=== PATIENT | male | born 1980 | race Caucasian/White ===

== ENCOUNTER 2017-10-07 12:17 | Inpatient (IN) | payer SELFPAY ==
[~2017-10-07] VITALS: Ht 175.3 cm; Wt 77.1 kg
[2017-10-07] MEDS ORDERED: ONDANSETRON HCL 4MG/2ML VIAL IV ONE (13:00)
[2017-10-07] MEDS ORDERED: CYANOCOBALAMIN 1000MCG/ML VIAL IM ONE (13:00)
[2017-10-07] MEDS ORDERED: SODIUM CHLORIDE 0.9% 1,000 ML IV ONE ×3 (13:00→15:00)
[2017-10-07 14:25] LABS: BASOPHILS % 0.3 % (0.0-2.0); EOSINOPHILS % 0.4 % (0.0-5.0); HEMATOCRIT. 38.1 % (42.0-52.0); LYMPHOCYTES % 9.3 % (20.0-50.0); MEAN CORPUSCULAR HEMOGLOBIN 30.1 pg (28.0-32.0); MEAN CORPUSCULAR VOLUME 88.4 fL (80.0-94.0); MEAN PLATELET VOLUME 8.5 fl (7.4-10.4); MONOCYTES % 6.3 % (2.0-8.0); NEUTROPHILS % 83.7 % (40.0-76.0); PLATELET 256 x1000/uL (130-400); RED CELL DISTRIBUTION WIDTH 13.4 % (11.6-14.6)
[2017-10-07 14:29] LABS: CHLORIDE 107 mEq/L (98-107)
[2017-10-07 14:31] LABS: PROTHROMBIN TIME 10.3 sec (9.4-11.6)
[2017-10-07 14:34] LABS: ETHANOL BLOOD < 10 mg/dL
[2017-10-07 14:37] LABS: CLARITY URINE CLEAR (CLEAR); COLOR URINE YELLOW (YELLOW); KETONES URINE NEGATIVE (NEGATIVE); LEUKOCYTE ESTERASE URINE NEGATIVE (NEGATIVE); NITRITE URINE NEGATIVE (NEGATIVE); OCCULT BLOOD URINE NEGATIVE (NEGATIVE); PROTEIN URINE NEGATIVE (NEGATIVE); SPECIFIC GRAVITY URINE 1.023 (1.005-1.030)
[2017-10-07 14:50] LABS: *AMPHETAMINES SCREEN URINE NEGATIVE (NEGATIVE); *BARBITURATES SCREEN URINE NEGATIVE (NEGATIVE); *BENZODIAZEPINES SCREEN URINE NEGATIVE (NEGATIVE); *COCAINE SCREEN URINE NEGATIVE (NEGATIVE)
[2017-10-07 14:51] LABS: CANNABINOID URINE SCREEN PRESUMTIVE POSITIVE (NEGATIVE); METHADONE URINE SCREEN NEGATIVE (NEGATIVE); OPIATES URINE SCREEN NEGATIVE (NEGATIVE); PHENCYCLIDINE URINE SCREEN NEGATIVE (NEGATIVE)
[2017-10-07] MEDS ORDERED: LORAZEPAM 2MG/ML CPJ IV PRN (19:30)
[2017-10-07] MEDS ORDERED: MAGNESIUM/ALUMINUM HYDROXIDE/SIMETHICONE 30ML UDC PO PRN (19:30)
[2017-10-07] MEDS ORDERED: NA PHOS,M-B/NA PHOS,DI-BA ENEMA 118ML PR PRN (19:30)
[2017-10-07] MEDS ORDERED: DIPHENHYDRAMINE 50MG/ML VIAL IV PRN (19:30)
[2017-10-07] MEDS ORDERED: IPRATROPIUM/ALBUTEROL 0.5-3(2.5)MG/3ML NEB INH PRN (19:30)
[2017-10-07] MEDS ORDERED: GUAIFENESIN 200MG/10ML SUGAR FREE UDC PO PRN (19:30)
[2017-10-07] MEDS ORDERED: CLONIDINE 0.1MG TABLET PO PRN (19:30)
[2017-10-07] MEDS ORDERED: HYDROCODONE/ACETAMINOPHEN 5/325MG TABLET PO PRN (19:30)
[2017-10-07] MEDS ORDERED: ACETAMINOPHEN 325MG TABLET PO PRN (19:30)
[2017-10-07] MEDS ORDERED: DOCUSATE SODIUM 100MG CAPSULE PO PRN (19:30)
[2017-10-07] MEDS: ONDANSETRON HCL 4MG/2ML VIAL IV PRN (20:24)
[2017-10-07 23:10] VITALS: BP 106/55
[2017-10-07 23:30] VITALS: BP 106/55
[2017-10-07] MEDS: SODIUM CHLORIDE 0.45% 1,000 ML IV SCH (23:30)
[2017-10-08 00:12] LABS: CHLORIDE 110 mEq/L (98-107)
[2017-10-08] MEDS ORDERED: LEVOFLOXACIN 500MG PREMIX 100 ML IV SCH (02:00)
[2017-10-08] MEDS: METRONIDAZOLE 500 MG PREMIX 100 ML IV SCH ×4 (02:37→21:14)
[2017-10-08 04:00] VITALS: BP 101/60
[2017-10-08 08:00] VITALS: BP 102/51
[2017-10-08] MEDS: ASPIRIN 81MG EC TABLET PO SCH (09:26)
[2017-10-08] MEDS: HYDROMORPHONE HCL/PF 2MG/ML CPJ IV PRN ×6 (10:48→23:29)
[2017-10-08 12:00] VITALS: BP 111/64
[2017-10-08] MEDS: ONDANSETRON HCL 4MG/2ML VIAL IV PRN (12:00)
[2017-10-08 12:11] LABS: BASOPHILS % 0.2 % (0.0-2.0); EOSINOPHILS % 0.2 % (0.0-5.0); HEMATOCRIT. 35.3 % (42.0-52.0); HEMOGLOBIN. 12.4 g/dL (14.0-18.0); LYMPHOCYTES % 14.6 % (20.0-50.0); MEAN CORPUSCULAR HEMOGLOBIN 30.7 pg (28.0-32.0); MEAN CORPUSCULAR VOLUME 87.5 fL (80.0-94.0); MEAN PLATELET VOLUME 8.5 fl (7.4-10.4); MONOCYTES % 4.9 % (2.0-8.0); NEUTROPHILS % 80.1 % (40.0-76.0); PLATELET 236 x1000/uL (130-400); RED BLOOD CELL COUNT 4.03 mill/uL (4.7-6.1); RED CELL DISTRIBUTION WIDTH 13.5 % (11.6-14.6)
[2017-10-08] MEDS: SODIUM CHLORIDE 0.45% 1,000 ML IV SCH (12:14)
[2017-10-08 12:23] LABS: CHLORIDE 108 mEq/L (98-107)
[2017-10-08 12:32] LABS: HDL CHOLESTEROL 43 mg/dL (40-59); LDL CHOLESTEROL 62 mg/dL (5-100)
[2017-10-08 12:37] LABS: T4 FREE 1.28 ng/dL (0.76-1.46)
[2017-10-08 16:00] VITALS: BP 105/67
[2017-10-08] MEDS: NICOTINE 21MG PATCH TD SCH (18:46)
[2017-10-08 20:30] VITALS: BP 104/61
[2017-10-09 00:15] VITALS: BP 105/66
[2017-10-09] MEDS: HYDROMORPHONE HCL/PF 2MG/ML CPJ IV PRN ×2 (02:20→06:33)
[2017-10-09] MEDS: LEVOFLOXACIN 500MG PREMIX 100 ML IV SCH ×2 (02:20→06:33)
[2017-10-09 04:00] VITALS: BP 120/63
[2017-10-09] MEDS: SODIUM CHLORIDE 0.45% 1,000 ML IV SCH (06:27)
[2017-10-09] MEDS: METRONIDAZOLE 500 MG PREMIX 100 ML IV SCH (06:27)
[2017-10-09 08:00] VITALS: BP 96/56
[2017-10-09] MEDS: ASPIRIN 81MG EC TABLET PO SCH (09:00)
[2017-10-09] MEDS: NICOTINE 21MG PATCH TD SCH (09:00)
[2017-10-09 09:15] LABS: CHLORIDE 109 mEq/L (98-107)
[2017-10-09 09:23] LABS: BASOPHILS % 0.6 % (0.0-2.0); EOSINOPHILS % 1.6 % (0.0-5.0); HEMATOCRIT. 39.3 % (42.0-52.0); HEMOGLOBIN. 13.2 g/dL (14.0-18.0); LYMPHOCYTES % 37.8 % (20.0-50.0); MEAN CORPUSCULAR HEMOGLOBIN 30.4 pg (28.0-32.0); MEAN CORPUSCULAR VOLUME 90.1 fL (80.0-94.0); MEAN PLATELET VOLUME 9.3 fl (7.4-10.4); MONOCYTES % 8.8 % (2.0-8.0); NEUTROPHILS % 51.2 % (40.0-76.0); PLATELET 159 x1000/uL (130-400); RED BLOOD CELL COUNT 4.36 mill/uL (4.7-6.1); RED CELL DISTRIBUTION WIDTH 13.6 % (11.6-14.6)
[2017-10-09 12:00] VITALS: BP 100/63
[2017-10-09 12:14] VITALS: BP 100/63
== END 2017-10-09 12:30 | disposition home or self-care (01) | DRG 282 ==
LOC: ER 13:38 → 5WST 16:58 → ENRESERV 19:22
PROVIDERS: ADMIT Internal Medicine; ATTEND Internal Medicine
DX: K85.20 Alcohol induced acute pancreatitis without necrosis or infection (principal); R00.1 Bradycardia, unspecified; E86.0 Dehydration; D64.9 Anemia, unspecified; D72.810 Lymphocytopenia; E87.6 Hypokalemia; R53.81 Other malaise; R73.9 Hyperglycemia, unspecified; F10.20 Alcohol dependence, uncomplicated; F12.10 Cannabis abuse, uncomplicated; K59.00 Constipation, unspecified; N20.0 Calculus of kidney; Z87.442 Personal history of urinary calculi; Z87.440 Personal history of urinary (tract) infections
CPT/HCPCS: 36415; 71045; 74176; 80048; 80053; 80061; 80305; 81003; 83036; 83605; 83735; 83880; 84439; 84443; 84484; 85025; 85610; 87040; 93005; 96372; 96374; 96375; 99285; G0482; J1170; J1956; J2060; J2405; J3420; J3490; J7030